=== PATIENT | male | born 1960 | race Caucasian/White ===

== ENCOUNTER 2024-07-14 13:58 | Emergency (ER) | payer MEDICARE, SELFPAY ==
[2024-07-14] VITALS (11 sets, daily range): BP systolic 115–122; BP diastolic 61–70; PULSE 71–76; RESP 13–24; TEMP 36.5; O2SAT 94–96
--- NOTE | 2024-07-14 14:00 | RT.EKG_ITS ---
APPROVED REPORT Exam: Resting ECG Reason for Exam: chest pain Patient Location: E HR:74 bpm ECG Measurements Heart Rate 74 AXIS RI 220 P 64 QRSd 118 QRS 185 QT 392 T 14 QTc 436 Conclusion Sinus rhythm 74 normal axis no stemi
[2024-07-14 14:31] LABS: Abs Immature Grans 0.03 10^3/uL (0.0-0.06); Absolute Basophil Count 0.05 10^3/uL (0.0-0.2); Absolute Eosinophil Count 0.14 10^3/uL (0.0-0.7); Absolute Lymphocyte Count 1.47 10^3/uL (1.2-3.4); Absolute Monocyte Count 0.49 10^3/uL (0.1-0.8); Absolute Neutrophil Count 4.63 10^3/uL (1.2-6.7); Basophils % 0.7 %; Eosinophils % 2.1 %; HCT 45.9 % (40.0-50.0); HGB 14.2 g/dL (13.5-17.5); Immature Grans % 0.4 %; Lymphocytes % 21.6 %; MCHC 30.9 % (32.0-36.0); MCV 87 fL (80-95); Monocytes % 7.2 %; Platelet Count 225 10^3/uL (130-400); RBC 5.25 10^6/uL (4.36-5.78); RDW 13.6 % (11.8-14.1); RDW-SD 43.9 fL; WBC 6.81 10^3/uL (4.4-10.8)
[2024-07-14 14:41] LABS: ALT 33 U/L (16-63); AST 17 U/L (15-37); Albumin 3.8 g/dL (3.4-5.0); Alkaline Phosphatase 113 U/L (46-116); Anion Gap 6.4 mmol/L (3-11); BUN 18 mg/dL (7-18); Bilirubin, Total 0.66 mg/dL (0.2-1.0); CO2 30.6 mmol/L (21.0-32.0); Calcium 8.9 mg/dL (8.5-10.1); Chloride 109 mmol/L (98-107); Estimated GFR 84.05 (mL/min/1.73m2); Glucose 100 mg/dL (74-106); Magnesium 1.8 mg/dL (1.8-2.4); Potassium 4.5 mmol/L (3.5-5.1); Sodium 146 mmol/L (136-145); Total Protein 6.6 g/dL (6.4-8.2)
--- NOTE | 2024-07-14 14:42 | DI.RAD_ITS ---
Exam(s) XR CHEST 2V PA LATERAL EXAM: XR CHEST 2V PA LATERAL CLINICAL HISTORY: cough. TECHNIQUE: 2D digital imaging was performed. COMPARISON: CR CHEST 2 VIEWS PA,LAT from 09/27/2008 FINDINGS: 2 views: There are sternotomy wires. Also fusion plate in the lower cervical spine noted. Heart size is normal. The mediastinum is not widened. Lungs are clear. No infiltrates nor pleural effusions. IMPRESSION: No acute pulmonary findings. DATA REPOSITORY: RADIATION DOSE DELIVERED:
--- NOTE | 2024-07-14 14:45 | NUR.NOTE ---
Nursing Note: Pt states he does not know any of the medications he's taking. Does not carry a medication list and does not have access to his patient portal. Fills prescriptions at [facility] in [place], [place]. Called pharmacy and they were closed until 1430, called back and Pharmacist Radha requesting a fax for release of information on company letter head. Will faxed RICHARD for medication list.
[2024-07-14 14:47] LABS: NT-proBNP 23 pg/mL (<300)
[2024-07-14 14:48] LABS: Troponin I < 4 ng/L (<or=76)
--- OUTSIDE RECORDS SUMMARY | 2024-07-14 14:55 | XMS_ITS | Encounter Summary ---
Author Organization [facility] Address [address] [place] [address] Care Team Providers Care Wrapper Rewinder Name Role Phone Unavailable Primary Care Provider Unavailabl e Encounter Details Date Type Department Care Team (Late st Contact Info) Description 05/15/2008 10:02 EDT - 05/15/2008 11:59 EDT Hospital Encounter [facility] [address] [place] [address] Sandor Juarez MD [address] [place] [address] Discharge Disposition: Auto Discharge Social History Tobacco Use Types Packs/Day Years Used Date Smoking Tobacco: Never Assessed Sex and Gender Information Value Date Recorded Sex Assigned at Not on file Legal Sex Male 18:23 EST Gender Identity Not on file Sexual Orientation Not on file documented as of this encounter Discharge Disposition Disposition Code Departure Means Destination Auto Discharge documented in this encounter Plan of Treatment Not on file documented as of this encounter Visit Diagnoses Not on filedocumented in this encounter
--- OUTSIDE RECORDS SUMMARY | 2024-07-14 14:55 | XMS_ITS | Referral Summary ---
Author Organization [facility] Address [address] [place] [address] Care Team Providers Care Healthcare Educator Name Role Phone Vipin Ramires MD Primary Care Provider Unav ailable Social History Tobacco Use Types Packs/Day Years Used Date Smoking Tobacco: Never Assessed Sex and Gender Information Value Date Recorded Sex Assigned at Not on file Legal Sex Male 18:23 EST Gender Identity Not on file Sexual Orientation Not on file Plan of Treatment Not on file Care Teams Healthcare Educator Relationship Specialty Start Date End Date Vipin Ramires MD PCP - General 01/27/11
--- OUTSIDE RECORDS SUMMARY | 2024-07-14 14:55 | XMS_ITS | Encounter Summary ---
Author Organization [facility] Address [facility] [place] [address] Care Team Providers Care Toll Line Mechanic Name Role Phone Vipin Ramires MD Primary Care Provider [phone] Encounter Details Date Type Department Care Team (Late st Contact Info) Description 05/18/2011 10:30 AM EDT - 05/18/2011 11:30 AM EDT [facility] [employer] [place] [address] Earnest Herrera MD [facility] [place] [address] CARDIAC CATHETERIZATION Social History Tobacco Use Types Packs/Day Years Used Date Smoking Tobacco: Former Cigarettes Q uit: 07/22/2009 Smokeless Tobacco: Never Sex and Gender Information Value Date Recorded Sex Assigned at Not on file Gender Identity Not on file Sexual Orientation Not on file documented as of this encounter Last Filed Vital Signs Vital Sign Reading Time Taken Comments Blood Pressure 98/63 05/18/2011 4:20 PM EDT Pulse 56 05/18/2011 4:20 PM EDT Temperature 36.9 ??C (98.4 ??F) 05/18/2011 12:57 PM E DT Respiratory Rate 16 05/18/2011 4:20 PM EDT Oxygen Saturation 98% 05/18/2011 4:20 PM EDT Inhaled Oxygen Concentration - - Weight 82.1 kg (181 lb) 05/18/2011 9:30 AM EDT Height 175.3 cm (5' 9) 05/18/2011 9:30 AM EDT Body Mass Index 26.73 05/18/2011 9:30 AM EDT documented in this encounter Discharge Instructions * Discharge Instructions* Sharan Lawsonah Cari, RN - 05/18/2011 2:43 PM EDT Wound infection may occur at any time, but it is evident more often 4-7 days after surgery. Signs and symptoms may involve one or more of the followin. Temperature elevation of more than 2 degrees or greater than 100.5 degrees F 2. Swelling and redness in or around the incision. 3. Increasing pain or discomfort in or around the incision. 4. Red streaks in the skin near the incision. 5. Pus or other foul drainage from the incision. 6. Foul smell from the incision. 7. Generalized body chills or fever. 8. Severe pain. If you suspect an incisional infection is present, are having problems, or have additional questions or concerns, please call the main [facility] number and ask for the polish maker signs and displays salesperson. Activity If you are discharged the same day as your procedure, do not drive yourself home. Arrange to have another person drive. You may walk around when you get home, but keep your activity at a minimum until the morning. Do not bend over, strain, or lift heavy objects for 24 hours after the procedure. Do not participate in active sports for 48 hours. You may engage in sexual activity after 48 hours. These restrictions will not apply if the catheter was placed in a blood vessel in your arm. Catheter Insertion Area Care Take the band-aid off the catheter insertion area the morning following the procedure. You may takea shower if you wish. Wash the area with soap and water. Look for signs of infection over the next several days. A little spot of blood at the catheter insertion area is not unusual. A bruise or small lump under the skin is normal; they generally disappear in 3-4 days. For the first several days at home if you cough or sneeze, hold your groin to help prevent bleeding. Expect some mild tenderness over the area where the catheter was inserted. You will notice this after the local anesthetic (numbing medicine) wears off. This should improve during the 24-48 hours after the procedure. Take tylenol if needed. Contact your doctor if the discomfort worsens. Problems to Watch For If there is bright red blood flowing from the catheter insertion area: *stop what you are doing and lie down *Hold pressure steadily on the area for 15 minutes *Call for Help *If the bleeding does not stop in 15 minutes call 911 for an ambulance. If there is swelling with black and blue color at the catheter insertion area, there may be bleeding inside. Contact the doctor if there is any increase in size. Look at the insertion site for the first few days at home. Signs of infection are: *redness *Swelling *Yellow, white, green or brown foul smelling drainage. *increased soreness If you think there is an infection, take your temperature. Then call your doctor. The limb on the side where you had your catheterization should look and feel normal in its color, sensation, and temperature. If your leg becomes cool, pale, blue or changing color with numbness and tingling, contact your doctor. If you feel faint or dizzy, lie down with your feet elevated. Have someone call the doctor. If you are alert, drink fluids. How to Deal with Chest pain If you had only the cardiac catheterization, treat any angina or chest discomfort as instructed. Stop what you are doing, and sit or lie down. If prescribed, take nitroglycerin under your tongue. If the angina isn't relieved, take another nitroglycerine in 5 minutes. After another 5 minutes, a third nitroglycerine may be taken. If the angina isn't improved you should call for an ambulance to bring you to the nearest hospital emergency room. If your angina is more frequent or more sever than before, contact your doctor. We usually would not expect to have angina after an angioplasty. If you do get angina, treat it as you did before but also contact your doctor. Return to Work The doctor will usually have told you when to return to work. If you do not perform heavy physical labor, most people can return to work in a few days. Diet Follow your previous diet unless otherwise instructed. Cardiac Risk Factors If you have coronary artery disease, it is important that you help control it by reducing your cardiac risk factors. If you smoke, we urge you to stop now. If you think this is going to be a problem,let us know so that we may help you. We have dieticians who can help you learn about low fat, low cholesterol diet. Cardiac rehabilitation programs can help you set up a regular exercise program. Work with your doctor if you have high blood pressure or sugar diabetes to keep these under control. Medications __x__Take your usual medications ____Medication changes: If you are taking medicines prescribed by your doctor, do not take any [id number] medicines or herbal preparations without first discussing this with your doctor or pharmacist. There is the possibility of side effect and interactions when these are combined. Follow up Care Who to Call with Questions or Problems If there are any questions or problems that you think might be related to your cardiac cath or angioplasty, contact the polish maker signs and displays salesperson by calling [facility] at . documented in this encounter Medications at Time of Discharge Medication Sig Dispensed Refills Start Date End Date metFORMIN (GLUCOPHAGE) 1,000 mg tabletIndications:type 2 diabetes mellitus Take 1,000 mg by mouth 2 times daily (with meals). Indications: Type 2 Diabetes Mellitus isosorbide mononitrate (IMDUR) 60 mg 24 hr tabletIndications:Angina Pectoris Prevention Take 60 mg by mouth daily. Indications: Angina Pectoris Prevention buPROPion (WELLBUTRIN XL) 300 mg 24 hr tabletIndications:depres jose manuel Take 300 mg by mouth every morning. Indications: Depression PARoxetine (PAXIL) 20 mg tabletIndications:depres jos emanuel Take 20 mg by mouth every morning. Takes 1 1/2 tab = 60 mg Indications: Depression carbidopa-levodopa (SINEMET) 25-100 mg per tablet Take 1 tablet by mouth nightly. ALPRAZolam (XANAX) 0.5 mg tablet Take 0.5 mg by mouth nightly. simvastatin (ZOCOR) 80 mg tablet Take 80 mg by mouth nightly. zolpidem (AMBIEN) 10 mg tablet Take 10 mg by mouth nightly. aspirin 325 mg EC tablet Take 325 mg by mouth daily. ALPRAZolam (XANAX) 2 mg tablet Take 2 mg by mouth daily. nitroGLYcerin (NITROSTAT) 0.[address] 0.4 mg under the tongue every 5 minutes as needed. metoprolol succinate (TOPROL-XL) 100 mg XL tablet Take 100 mg by mouth daily. naproxen sodium (ALEVE) 220 mg tablet Take 220 mg by mouth as needed. lamoTRIgine (LAMICTAL) 100 mg tablet Take 100 mg by mouth daily. documented as of this encounter Progress Notes * Dianna Lawson RN - 05/18/2011 1:24 PM EDT 1300- pt settled in rm # [id number]. Right groin site c/d/i. No s/sx of hematoma noted. Denies pain. VSS. to bedside and spoke with on the phone. All questions answered. Pt eating turkey sandwich and drinking diet elsa santana. In no acute distress. 1433- pt sleeping. at bedside. In no acute distress. 1530- IVF complete. 1600- pt awakened. Discharge instructions reviewed with pt and . All questions answered. Written instructions given. Denies pain. 1615- OOB and ambulated in hallway with steady gait. Right groin site C/D/I. Area soft, no s/sx hematoma. VSS. Ready for discharge. To BR and voided without difficulty. Getting dressed. 1620- call to r&d lab technician- Per - pt to hold metformin x48 hours post procedure. Pt made aware.Ready for discharge. 1632- to private car via w/c in no acute distress. documented in this encounter Procedure Notes * Provider, Scanning - 05/19/2011 10:56 AM EDTAssociated Order(s): SCAN DOC: CARDIAC CATH documented in this encounter Miscellaneous Notes * Miscellaneous - Provider, Scanning - 05/19/2011 10:56 AM EDT * Miscellaneous - Provider, Scanning - 05/18/2011 9:59 AM EDT documented in this encounter Plan of Treatment Scheduled Orders Name Type Priority Associated Diagnoses Orde r Schedule EKG 12 Lead ECG STAT CAD (coronary artery disease) One Time for 1 Occurrences starting 05/18/2011 until 05/18/2011 documented as of this encounter Procedures Procedure Name Priority Date/Time Associated Diagnosis Comments CARDIAC CATH SCAN 05/19/2011 10: 56 AM EDT CARDIAC CATHETERIZATION 05/18/20 11 10:45 AM EDT as POCT GLUCOSE Routine 05/18/2011 9:29 AM EDT BMP W/FASTING GLUCOSE STAT 05/18/2011 9:18 AM EDT DIFFERENTIAL, AUTOMATED STAT 05/18/20 11 9:18 AM EDT PROTHROMBIN TIME STAT 05/18/2011 9:18 AM EDT CBC (WITH DIFF) STAT 05/18/2011 9:18 AM EDT CAD (coronary artery disease) LIPID PANEL (REFLEX DIRECT LDL) STAT 05/18/2011 9:18 AM EDT documented in this encounter Results * SCAN DOC: CARDIAC CATH (05/19/2011 10:56 AM EDT) Anatomical Region Laterality Modality Other Narrative 05/19/2011 10:58 AM EDT Procedure Note Provider, Scanning - 05/19/2011 10:56 AM EDT Scanning Provider MEDIA MGR SCAN EXT O RDR/RSLT * POCT GLUCOSE LAB USE ONLY (05/18/2011 9:29 AM EDT) Glucose, POC 123 60 - 199 mg/dL [facility] Comment: Supplemental ranges: <110 mg/dL before meals <200 mg/dL all other times of the day Blood specimen (specimen) 05/18/2011 9:29 AM EDT 05/18/2011 9:29 AM EDT Earnest Herrera MD POINT OF CARE TEST O RDERABLES [facility] * A-DIFF (05/18/2011 9:18 AM EDT) Neutrophil % 61.0 34.0 - 71.0 % CERNER MILLENNIUM Neutrophil Absolute 5.20 1.50 - 6.30 x10(3)/mcL CERNER MILLENNIUM Lymph % 28.3 19.0 - 53.0 % CERNER MILLENNIUM Lymphocytes Abs 2.4 1.0 - 3.6 x10(3)/mcL CERNER MILLENNIUM Monocyte % 7.3 4.0 - 13.0 % CERNER MILLENNIUM Monocyte Abs 0.6 0.2 - 1.0 x10(3)/mcL CERNER MILLENNIUM Eos % 2.6 0.0 - 7.0 % CERNER MILLENNIUM Eosinophils Abs 0.2 0.0 - 0.5 x10(3)/mcL CERNER MILLENNIUM Basophil % 0.6 0.0 - 2.0 % CERNER MILLENNIUM Baso Absolute 0.1 0.0 - 0.2 x10(3)/mcL CERNER MILLENNIUM Immature Gran % 0.20 0.00 - 0.66 % CERNER MILLENNIUM Comment: Immature granulocytes(IG's)percentage and absolute count will include metamyelocytes, myelocytes, and promyelocytes. Blood smears from CBCs yielding IG's will be scanned manually for concordance. If this scan disagrees with the automated IG or if promyelocytes are noted, a manual differential will be performed. Immature Gran Absolute 0.02 0.00 - 0.05 x10(3)/mcL CERNER MILLENNIUM Blood specimen (specimen) 05/18/2011 9:18 AM EDT 05/18/2011 9:41 AM EDT Earnest Herrera MD HEMATOLOGY ORDERABLE S [facility] * CBC (with Diff) (05/18/2011 9:18 AM EDT) White Blood Cell 8.5 4.0 - 10.0 x10(3)/mcL CERNER MILLENNIUM Red Blood Cell 5.25 4.63 - 6.08 x10(6)/mcL CERNER MILLENNIUM Hemoglobin 14.8 13.7 - 17.5 gm/dL CERNER MILLENNIUM Hematocrit 45.3 40.0 - 51.0 % CERNER MILLENNIUM Mean Cell Volume 86.3 79.0 - 92.0 fL CERNER MILLENNIUM Mean Cell Hemoglobin 28.2 25.6 - 32.2 pg CERNER MILLENNIUM Mean Cell Hemoglobin Concentration 32.7 32.0 - 36.5 gm/dL CERNER MILLENNIUM Platelet 240 145 - 370 x10(3)/mcL CERNER MILLENNIUM RDW Standard Deviation 43.4 35.0 - 46.0 fL CERNER MILLENNIUM RDW coefficient of variation 13.9 10.9 - 14.4 % CERNER MILLENNIUM Mean Platelet Volume 9.1 9.0 - 12.0 fL CERNER MILLENNIUM Blood specimen (specimen) 05/18/2011 9:18 AM EDT 05/18/2011 9:41 AM EDT Earnest Herrera MD HEMATOLOGY ORDERABLE S CERNER MILLENNIUM * (ABNORMAL) Lipid panel (fasting) (05/18/2011 9:18 AM EDT) Cholesterol, Total 142 <=199 mg/dL CERNER MILLENNIUM Comment: Recommendations of the NCEP Adult Treatment Panel for the following risk cutoff thresholds for the [place] population: Desirable: <200 mg/dL Borderline High: 200-239 mg/dL High: > or = 240 mg/dL Triglyceride 133 <=149 mg/dL CERNER MILLENNIUM Comment: Reference Range: Normal triglycerides: ??<150 mg/dL Borderline high: ??150-199 mg/dL High: ??200-499 mg/dL Very high: ??>fl=521 mg/dL AIFA 2001; 285(19):9360-7263 HDL Cholesterol 39(L) >=40 mg/dL CER NER MILLENNIUM Comment: Reference range: ??Low HDL: ?? < 40 mg/dL ??Normal: ?40-60 mg/dL ??Desirable: > 60 mg/dL AFIA 2001; 285(19):6024-9744 LDL Cholesterol 76 <=99 mg/dL [facility] NER MILLENNIUM Comment: Reference range: ?? Optimal: ?<100 mg/dL ?? Near Optimal/Above Optimal: ?? 100-129 mg/dL ?? Borderline high: ?130-159 mg/dL ?? High: ? 160-189 mg/dL ?? Very high: ?>vt=331 mg/dL AFIA 2001: 285(19):9410-1352 Cholesterol/HDL Ratio 3.6 ratio [facility] Comment: A Cholesterol to HDL ratio below 4:1 is desirable. ??Studies suggest that increased CAD risk occurs at ratios above 5 for females and above 6 for men. ? [place] Heart Association ??(http://www.americanheart.org) ? Minda Int Med, 1994; 121:641 ? AM J Med, 1998; 105(1A):48S Blood specimen (specimen) 05/18/2011 9:18 AM EDT 05/18/2011 9:41 AM EDT Earnest Herrera MD CHEMISTRY ORDERABLES [facility] * (ABNORMAL) BMP w/fasting Glucose (05/18/2011 9:18 AM EDT) Glucose Fasting 136(H) 65 - 99 mg/dL [facility] Comment: ?Fasting* Glucose Interpretive Criteria Normal ?65-99 mg/dL Impaired Fasting glucose ?100-125 mg/dL Consistent with Diabetes Mellitus ? >or= 126 mg/dL *Fasting is defined as no caloric intake for at least 8 hours In the absence of unequivocal hyperglycemia a plasma glucose value of >or= 126 mg/dL should be repeated on a subsequent day. Diagnosis and Classification of Diabetes Mellitus, Position Statement from the [place] Diabetes Association. ??Diabetes Care, Volume 33, Supplement 1, Aug 2009 Blood Urea Nitrogen 17 10 - 20 mg/dL CERNER MILLENNIUM Creatinine 1.20 0.80 - 1.50 mg/dL CERNER MILLENNIUM Sodium 142 135 - 145 mmol/L CERNER MILLENNIUM Potassium 5.3(H) 3.5 - 5.0 mmol/L CERNER MILLENNIUM Comment: Please note: ??Patients with WBC >100,000 may have falsely elevated Potassium levels. ??For accurate Potassium quantification in these patients send serum separator tube (gold top) for subsequent determinations. ??Contact the Clinical Chemistry Laboratory if there are any questions. Chloride 104 98 - 107 mmol/L CERNER MILLENNIUM Carbon Dioxide 33(H) 22 - 31 mmol/L CERNER MILLENNIUM Anion Gap 5 5 - 15 mmol/L CERNER MILLENNIUM Calcium 9.8 8.5 - 10.5 mg/dL CERNER MILLENNIUM Est Glomerular Filtration Rate >60 >=60 CERNER MILLENNIUM Comment: The National Kidney Disease Education Program (NKDEP) has recommended all laboratories report estimated GFR (eGFR) along with plasma creatinine measurements to assist you with recognition of early kidney disease. Caveats: ??Plasma creatinine should be at steady-state (unchanged within the past week). For patients multiply eGFR by 1.2.MDRD equation has not been validated for pediatric patients and is only valid for patients with age >= 18 years. At present, NKDEP does NOT recommend using the MDRD equation for drug dosing purposes and pharmacists should continue to use their current dosing methods. In addition, numerical eGFR values greater than 60 ml/min/1.73 square meters should be treated as > 60, and not an exact number due to greater inaccuracies at these higher values. Per NKDEP, they classify normal renal function as any GFR >60ml/min/1.73 square meters; chronic kidney disease when GFR <60, and renal failure when GFR <15. ??This calculation may not be valid for patients with atypical muscle mass (very lean or obese), acute renal failure, and in patients with diabetic kidney disease. References: http://nkdep.nih.gov/resources/NKDEP_Suggestn4Labs_0606_508.pdf http://www.kidney.org/professionals/kls/pdf/faq_gfr.pdf Blood specimen (specimen) 05/18/2011 9:18 AM EDT 05/18/2011 9:41 AM EDT Earnest Herrera MD CHEMISTRY ORDERABLES Performing Organization Address [facility] Co de Phone Number CHATO SANON * Prothrombin Time (05/18/2011 9:18 AM EDT) Prothrombin Time 13.0 12.3 - 14.7 sec CHATO LORIEENNIUM Comment: [facility] Transfusion Committee Guidelines: INR less than 2.0, PTT less than OR equal to 43.5 seconds, or Fibrinogen greater than or equal to 100 mg/dl indicate adequate procoagulant activity for hemostasis in patients without underlying bleeding disorders. International Normalization Ratio 1.0 0.9 - 1.1 CHATO LORIEJENY Blood specimen (specimen) 05/18/2011 9:18 AM EDT 05/18/2011 9:41 AM EDT Earnest Herrera MD HEMATOLOGY ORDERABLE S Performing Organization Address [facility] de Phone Number CHATO SANON documented in this encounter Visit Diagnoses Not on filedocumented in this encounter Administered Medications Inactive Administered Medications - up to 3 most recent administrations Medication Order MAR Action Action Date Dose Rate Site diaZEPam (VALIUM) tablet 5 mg 5 mg, Oral, ONCE, 1 dose, On Tue05/18/11 at 1015, Cath (Day of Procedure), Routine Given 05/18/2011 10:38 AM EDT 5 mg diphenhydrAMINE (BENADRYL) tablet 25 mg 25 mg, Oral, ONCE, 1 dose, On Tue05/18/11 at 1015, Cath (Day of Procedure), Routine Given 05/18/2011 10:38 AM EDT 25 mg heparin (porcine) injection ONCE PRN, 1 dose, Starting on Tue05/18/11 at 1104, Until Tue05/18/11 at 1104, Intra-Operative (Intra-Procedure), Routine Given 05/18/2011 11:04 AM EDT 2,000 Units Left Arm iodixanol (VISIPAQUE) 320 mg/mL injection ONCE PRN, 1 dose, Starting on Tue05/18/11 at 1134, Until Tue05/18/11 at 1134, Per Protocol, Cath (Intra-Procedure), Routine Given 05/18/2011 11:34 AM EDT 165 mLs lidocaine (PF) (XYLOCAINE) 10 mg/mL (1 %) injection ONCE PRN, 1 dose, Starting on Tue05/18/11 at 1100, Until Tue05/18/11 at 1100, Intra-Operative (Intra-Procedure), Routine Given 05/18/2011 11:00 AM EDT 10 mg sodium chloride 0.9% infusion 100 mL/hr, Intravenous, CONTINUOUS, Starting on Tue05/18/11 at 1200, Until Tue05/18/11 at 1459 New Bag 05/18/2011 12:30 PM EDT 100 mL/hr 100 mL/hr documented in this encounter Active and Recently Administered Medications Times are shown in EDT. Scheduled Medication Order 05/16/2011 05/17/2011 05/18/2011 diaZEPam (VALIUM) tablet 5 mg (COMPLETED) 5 mg, Oral, ONCE, 1 dose, On Tue05/18/11 at 1015, Cath (Day of Procedure), Routine 1038 (Given - Provid er: Lance Pereira RN) diphenhydrAMINE (BENADRYL) tablet 25 mg (COMPLETED) 25 mg, Oral, ONCE, 1 dose, On Tue05/18/11 at 1015, Cath (Day of Procedure), Routine 1038 (Given - Provid er: Lance Pereira RN) Continuous Medication Order 05/16/2011 05/17/2011 05/18/2011 sodium chloride 0.9% infusion () 100 mL/hr, Intravenous, CONTINUOUS, Starting on Tue05/18/11 at 1200, Until Tue05/18/11 at 1459 1230 (New Bag - Prov ider: Noel Bailon RN - Comment: post cath fluid) PRN Medication Order 05/16/2011 05/17/2011 05/18/2011 heparin (porcine) injection (COMPLETED) ONCE PRN, 1 dose, Starting on Tue05/18/11 at 1104, Until Tue05/18/11 at 1104, Intra-Operative (Intra-Procedure), Routine 1104 (Given - Provid er: Abi Pereyra RN) iodixanol (VISIPAQUE) 320 mg/mL injection (COMPLETED) ONCE PRN, 1 dose, Starting on Tue05/18/11 at 1134, Until Tue05/18/11 at 1134, Per Protocol, Cath (Intra-Procedure), Routine 1134 (Given - Provid er: Earnest Herrera MD) lidocaine (PF) (XYLOCAINE) 10 mg/mL (1 %) injection (COMPLETED) ONCE PRN, 1 dose, Starting on Tue05/18/11 at 1100, Until Tue05/18/11 at 1100, Intra-Operative (Intra-Procedure), Routine 1100 (Given - Provid er: Mark Madrigal MD) documented in this encounter Care Teams Toll Line Mechanic Relationship Specialty Start Date End Date Vipin Ramires MD [address] [place] [address] PCP - General 07/14/10 documented as of this encounter
--- OUTSIDE RECORDS SUMMARY | 2024-07-14 14:55 | XMS_ITS | Encounter Summary ---
Author Organization [facility] Address [address] [place] [address] Care Team Providers Care Shearer Screen Measurer And Trimmer Name Role Phone Unavailable Primary Care Provider Unavailabl e Encounter Details Date Type Department Care Team (Late st Contact Info) Description 05/30/2008 14:55 EDT Hospital Encounter [facility] [address] [place] [address] Cristofer Mehta MD [address] [facility], [address] [place] [address] Discharge Disposition: Auto Discharge Social History Tobacco [...]
--- OUTSIDE RECORDS SUMMARY | 2024-07-14 14:55 | XMS_ITS | Encounter Summary ---
Author Organization [facility] [place] [address] Care Team Providers Care Bed Laborer Name Role Phone Vipin Ramires MD Primary Care Provider [phone] [phone] Encounter Details Date Type Department Care Team (Latest Contact Info) Description 05/10/2011 10:25 AM EDT - 05/10/2011 11:59 PM EDT Hospital [place] [id number] Italo Mae MD CAD (coronary artery disease) Discharge Disposition: Home Social History Tobacco Use Types Packs/Day Years Used Date Smoking Tobacco: Former Cigarettes Q uit: 07/22/2009 Smokeless Tobacco: Never Sex and Gender Information Value Date Recorded Sex Assigned at Not on file Gender Identity Not on file Sexual Orientation Not on file documented as of this encounter Medications at Time of Discharge Medication Sig Dispensed Refills Start Date End Date carbidopa-levodopa (SINEMET) 25-100 mg per tablet Take [...] mouth daily. documented as of this encounter Plan of Treatment Not on file documented as of this encounter Procedures Procedure Name Priority Date/Time Associated Diagnosis Comments DIFFERENTIAL, AUTOMATED Routine 05/10/2011 11:05 AM EDT ABO/RH TYPING Routine 05/10/2011 11:05 AM EDT APTT Routine 05/10/2011 11:05 AM EDT CAD (coronary artery disease) PROTHROMBIN TIME Routine 05/10/2011 11:0 5 AM EDT CAD (coronary artery disease) CBC (WITH DIFF) Routine 05/10/2011 11:05 AM EDT CAD (coronary artery disease) ANTIBODY SCREEN Routine 05/10/2011 11:05 AM EDT BASIC METABOLIC PANEL Routine 05/10/2011 11:05 AM EDT CAD (coronary artery disease) TYPE AND SCREEN, SDP (FUTURE SURGERY, [facility] SAME DAY PROGRAM ONLY) Routine 05/10/2011 10:33 AM EDT CAD (coronary artery disease) documented in this encounter Results * REFLEX LAB-A-DIFF (05/10/2011 11:05 AM EDT) Neutrophil % 56.7 34.0 - 71.0 % CERNER MILLENNIUM Neutrophil Absolute 5.38 1.50 - 6.30 x10(3)/mcL CERNER MILLENNIUM Lymph % 31.5 19.0 - 53.0 % CERNER MILLENNIUM Lymphocytes Abs 3.0 1.0 - 3.6 x10(3)/mcL CERNER MILLENNIUM Monocyte % 5.8 4.0 - 13.0 % CERNER MILLENNIUM Monocyte Abs 0.6 0.2 - 1.0 x10(3)/mcL CERNER MILLENNIUM Eos % 5.5 0.0 - 7.0 % CERNER MILLENNIUM Eosinophils Abs 0.5 0.0 - 0.5 x10(3)/mcL CERNER MILLENNIUM Basophil % 0.3 0.0 - 2.0 % CERNER MILLENNIUM Baso Absolute 0.0 0.0 - 0.2 x10(3)/mcL CERNER MILLENNIUM Immature Gran % 0.20 0.00 - 0.66 % [facility] LORIEENNIUM Comment: Immature granulocytes(IG's)percentage and absolute count will include metamyelocytes, myelocytes, and promyelocytes. Blood smears from CBCs yielding IG's will be scanned manually for concordance. If this scan disagrees with the automated IG or if promyelocytes are noted, a manual differential will be performed. Immature Gran Absolute 0.02 0.00 - 0.05 x10(3)/mcL CHATO CARABALLOIUM Blood specimen (specimen) 05/10/2011 11:05 AM EDT 05/10/2011 11:13 AM EDT Italo Mae MD HEMATOLOGY ORDERABL ES Performing Organization Address [facility] de Phone Number [facility] * REFLEX LAB-ANTIBODY SCREEN (05/10/2011 11:05 AM EDT) Ab Screen Interp Negative [facility] Expires at [id number] on: [id number] [facility] Blood specimen (specimen) 05/10/2011 11:05 AM EDT 05/10/2011 11:13 AM EDT Italo Mae MD BLOOD BANK LAB ORDFabiola FLEMING Performing Organization Address [facility] de Phone Number [facility] * REFLEX LAB-ABO/RH TYPING (05/10/2011 11:05 AM EDT) ABORH Type O Pos [facility] Blood specimen (specimen) 05/10/2011 11:05 AM EDT 05/10/2011 11:13 AM EDT Italo Mae MD BLOOD BANK LAB ORDFabiola FLEMING Performing Organization Address [facility] Co de Phone Number CERFABIAN MILLENNIUM * APTT (05/10/2011 11:05 AM EDT) Partial Thromboplastin Time 25 25 - 37 sec CERNER MILLENNIUM Comment: Recommended therapeutic PTT range for full dose unfractionated heparin is 80-114 seconds. Blood specimen (specimen) 05/10/2011 11:05 AM EDT 05/10/2011 11:13 AM EDT Italo Mae MD HEMATOLOGY ORDERABL ES Performing Organization Address [facility] de Phone Number CHATO CARABALLOIUM * (ABNORMAL) Prothrombin Time (05/10/2011 11:05 AM EDT) Prothrombin Time 12.2(L) 12.3 - 14.7 sec CERNER MILLENNIUM Comment: [facility] Transfusion Committee Guidelines: INR less than 2.0, PTT less than OR equal to 43.5 seconds, or Fibrinogen greater than or equal to 100 mg/dl indicate adequate procoagulant activity for hemostasis in patients without underlying bleeding disorders. International Normalization Ratio 0.9 0.9 - 1.1 CERNER MILLENNIUM Blood specimen (specimen) 05/10/2011 11:05 AM EDT 05/10/2011 11:13 AM EDT Italo Mae MD HEMATOLOGY ORDERABL ES Performing Organization Address [facility] de Phone Number CERFABIAN CARABALLOIUM * (ABNORMAL) Basic Metabolic Panel (non-fasting) (05/10/2011 11:05 AM EDT) Glucose 108 60 - 199 mg/dL CERNER MILLENNIUM Comment:Diabetes: >=200 mg/d L plus symptoms Blood Urea Nitrogen 17 10 - 20 mg/dL CERNER MILLENNIUM Creatinine 1.01 0.80 - 1.50 mg/dL CERNER MILLENNIUM Sodium 143 135 - 145 mmol/L CERNER MILLENNIUM Potassium 5.1(H) 3.5 - 5.0 mmol/L CERNER MILLENNIUM Comment: Please note: ??Patients with WBC >100,000 may have falsely elevated Potassium levels. ??For accurate Potassium quantification in these patients send serum separator tube (gold top) for subsequent determinations. ??Contact the Clinical Chemistry Laboratory if there are any questions. Chloride 103 98 - 107 mmol/L CERNER MILLENNIUM Carbon Dioxide 31 22 - 31 mmol/L CERNER MILLENNIUM Anion Gap 9 5 - 15 mmol/L CERNER MILLENNIUM Calcium 9.7 8.5 - 10.5 mg/dL CERNER MILLENNIUM Est [...] disease. References: http://nkdep.nih.gov/resources/NKDEP_Suggestn4Labs_0606_508.pdf http://www.kidney.org/professionals/kls/pdf/faq_gfr.pdf Blood specimen (specimen) 05/10/2011 11:05 AM EDT 05/10/2011 11:13 AM EDT Italo Mae MD CHEMISTRY ORDERABLE S CHATO SANON * CBC (with Diff) (05/10/2011 11:05 AM EDT) White Blood Cell 9.5 4.0 - 10.0 x10(3)/mcL CERNER MILLENNIUM Red Blood Cell 5.12 4.63 - 6.08 x10(6)/mcL CERNER MILLENNIUM Hemoglobin 14.6 13.7 - 17.5 gm/dL CERNER MILLENNIUM Hematocrit 44.3 40.0 - 51.0 % CERNER MILLENNIUM Mean Cell Volume 86.5 79.0 - 92.0 fL CERNER MILLENNIUM Mean Cell Hemoglobin 28.5 25.6 - 32.2 pg CERNER MILLENNIUM Mean Cell Hemoglobin Concentration 33.0 32.0 - 36.5 gm/dL CERNER MILLENNIUM Platelet 231 145 - 370 x10(3)/mcL CERNER MILLENNIUM RDW Standard Deviation 43.0 35.0 - 46.0 fL CERNER MILLENNIUM RDW coefficient of variation 13.5 10.9 - 14.4 % CERNER MILLENNIUM Mean Platelet Volume 9.1 9.0 - 12.0 fL CERNER MILLENNIUM Blood specimen (specimen) 05/10/2011 11:05 AM EDT 05/10/2011 11:13 AM EDT Italo Mae MD HEMATOLOGY ORDERABL ES CHATO SANON documented in this encounter Visit Diagnoses Diagnosis CAD (coronary artery disease) Coronary atherosclerosis of unspecified type of vessel, rincon or graft documented in this encounter Care Teams Bed Laborer Relationship Specialty Start Date End Date Vipin Ramires MD [address] [place] [address] PCP - General 07/14/10 documented as of this encounter
--- OUTSIDE RECORDS SUMMARY | 2024-07-14 14:55 | XMS_ITS | Encounter Summary ---
Author Organization [facility] [place] [address] Care Team Providers Care Interlacer Name Role Phone Vipin Ramires MD Primary Care Provider [phone] [phone] Reason for Visit * Reason Comments Chest Pain s/p cabg Encounter Details Date Type Department Care Team (Late st Contact Info) Description 05/10/2011 9:00 AM EDT Office Visit [place]oth[place] [address] Italo Mae MD CAD (coronary artery disease) (Primary Dx) Discharge Disposition: Home Social History Tobacco Use Types Packs/Day Years Used Date Smoking Tobacco: Former Cigarettes Q uit: 07/22/2009 Smokeless Tobacco: Never Sex and Gender Information Value Date Recorded Sex Assigned at Not on file Gender Identity Not on file Sexual Orientation Not on file documented as of this encounter Last Filed Vital Signs Vital Sign Reading Time Taken Comments Blood Pressure 100/60 05/10/2011 9:07 AM EDT Pulse 64 05/10/2011 9:07 AM EDT Temperature - - Respiratory Rate - - Oxygen Saturation 98% 05/10/2011 9:07 AM EDT Inhaled Oxygen Concentration - - Weight 82.1 kg (181 lb) 05/10/2011 9:07 AM EDT Height 177.8 cm (5' 10) 05/10/2011 9:07 AM EDT Body Mass Index 25.97 05/10/2011 9:07 AM EDT documented in this encounter Progress Notes * Italo Mae MD - 05/10/2011 10:16 AM EDT Mr. Mendez is status post CABG times three, ALVARADO to the LAD, saphenous vein graft to a moderate size to small diag, and a saphenous vein graft to the right coronary artery. He is about two years out of his surgery with now going about nine to 12 months of recurrent angina. He takes a long-acting nitrate for that and about once a month needs a short-acting nitrate. He is on permanent disability due to both his anginal problems, as well as his mental problems. He currently is pain-free right now, but limiting his activity. His last cath was a year ago showing that both vein grafts were down, that his ALVARADO to the LAD looked great and it was retrograde filling at the diag, which has a tight stenosis in it, but the diag looks very small. His right coronary artery showed his stents were functioning and probably out-competed the flow of the graft with no significant stenosis. His EF is relatively preserved. His past medical history, his past surgical history is unchanged. The EMR can be used to find his medications and his allergies and his smoking history. Impression: Mr. Mendez has chronic stable angina, status post CABG, which is becoming refractory to his current medication therapy. Plan: 1. He will get a carotid duplex due to his plaque burden and his recent symptoms of slurred speech, headaches and confusion. 2. He will see Dr. Baker for a repeat catheterization. 3. We will the discuss stenting versus bypass options. documented in this encounter Plan of Treatment Not on file documented as of this encounter Results * Cerebrovascular Duplex, Bilateral (05/10/2011 12:29 PM EDT) VB Text Report Department: Vascular Surgery Lab Patient: [id number] (PAULA MENDEZ) CPT Code: 27707 ICD-9: 782.0 Referring Physician: ITALO MAE Indication: ??neck and face numbness ICD9 Diagnosis Code: 782.0 Findings: Right ICA Proximal ?PSV (cm/s): 45 ?EDV (cm/s): 21 ?ICA/CCA: 0.7 ?Plaque Structure: Echogenic ?Plaque Surface: Smooth ?%Stenosis: <15% ICA Distal ?PSV (cm/s): 44 ?EDV (cm/s): 20 ?ICA/CCA: 0.7 CCA Distal ?PSV (cm/s): 63 ?EDV (cm/s): 20 ?%Stenosis: Minimal CCA Proximal ?PSV (cm/s): 72 ?EDV (cm/s): 19 External Carotid Artery ?PSV (cm/s): 90 ?EDV (cm/s): 13 ?%Stenosis: Minimal Vertebral ?PSV (cm/s): 31 ?EDV (cm/s): 10 Left ICA Proximal ?PSV (cm/s): 41 ?EDV (cm/s): 18 ?ICA/CCA: 0.6 ?Plaque Structure: Echogenic ?Plaque Surface: Smooth ?%Stenosis: <15% ICA Distal ?PSV (cm/s): 33 ?EDV (cm/s): 16 ?ICA/CCA: 0.5 CCA Distal ?PSV (cm/s): 65 ?EDV (cm/s): 16 ?%Stenosis: Minimal CCA Proximal ?PSV (cm/s): 71 ?EDV (cm/s): 17 External Carotid Artery ?PSV (cm/s): 78 ?EDV (cm/s): 14 ?%Stenosis: Minimal Vertebral ?PSV (cm/s): 28 ?EDV (cm/s): 10 Interpretation: RIGHT: There is minimal plaque in the proximal internal carotid artery causing <15% stenosis when compared to the more distal internal carotid artery. The bifurcation level is in the mid neck. LEFT: There is minimal plaque in the proximal internal carotid artery causing <15% stenosis when compared to the more distal internal carotid artery. The bifurcation level is in the mid neck. Vertebral Artery Data: Antegrade blood flow with normal Doppler waveforms and velocities bilaterally. Accuracy Data: The following statistics are based on comparisons performed [place] [facility] [place]invasive carotid artery duplex data and arteriographic evaluation of the same patients from 8023-3222. Q / A Sens. Spec. PPV NPV Accuracy Carotid 93% 98% 97% 95% 96% Signed by DERICK LAUREN on 2011-05-10 04:41:58 PM VASCUBASE VB Text Report End of Report VASCUBASE 05/10/2011 12:2 9 PM EDT Italo Mae MD VASCULAR ORDERABLES VASCUBASE documented in this encounter Visit Diagnoses Diagnosis CAD (coronary artery disease)- Primary Coronary atherosclerosis of unspecified type of vessel, pe[place] or graft documented in this encounter Care Teams Interlacer Relationship Specialty Start Date End Date Vipin Ramires MD [address] [place] [address] PCP - General 07/14/10 documented as of this encounter
--- OUTSIDE RECORDS SUMMARY | 2024-07-14 14:55 | XMS_ITS | Encounter Summary ---
Author Organization [facility] Address [address] [place] [address] Care Team Providers Care Heavy Truck Technician Name Role Phone Unavailable Primary Care Provider Unavailabl e Encounter Details Date Type Department Care Team (Late st Contact Info) Description 05/15/2008 Before PRISM Converted Visit ([facility]) [facility] [address] [place] [address] Sandor Juarez MD [address] [place] [address] [place] [id number] Social History Tobacco Use Types Packs/Day Years Used Date Smoking Tobacco: Never Assessed Sex and Gender Information Value Date Recorded Sex Assigned at Not on file Legal Sex Male 18:23 EST Gender Identity Not on file Sexual Orientation Not on file documented as of this encounter Consult Notes * Sandor Juarez - 03/15/2009 1316 EDT DIVISION OF GASTROENTEROLOGY CONSULTATION - 05/15/2008 CHIEF COMPLAINT Mr. Mendez was referred to the gastroenterology clinic by Dr. Radhames Mckee for evaluation of dysphagia. HISTORY OF PRESENT ILLNESS Mr. Mendez is a 48-year-old gentleman with a history of gastroesophageal reflux status postNissen fundoplication done in 2000. Since that time, the patient has had improvement of his gastroesophagealreflux symptoms; however, he has had difficulty with dysphagia, especially with solids. His symptoms have been persistent over these years and hewas initially advised to be more thorough with chewingof food, but this did not improve symptoms. He underwent an EGD with dilatation to 18-mm, and againdid not have any improvement in his symptoms. The patient describes a sensation of the food stickinglower in the esophagus and also has to regurgitate in order to improve symptoms. The patient has not had any weight loss over this time period and denies any early satiety. The patient has had intermittent left lower quadrant tenderness as well as intermittent bright red blood per rectum. The patient has had a colonoscopy in the past, which per his report was normal, but this was many years ago per the patient. REVIEW OF SYSTEMS The patient denies fevers, chills, no vision changes, no sore throat or mouth pain, no chest pain, no shortness of breath, no skin rashes, no dysuria. PAST MEDICAL HISTORY Coronary artery disease status post PCI times three, hyperlipidemia, hypertension, anxiety, osteoarthritis, restless legs syndrome. CURRENT MEDICATIONS 1. Paxil 60 mg p.o. every day. 2. Aspirin 325 mg p.o. every day. 3. Prilosec 20 mg p.o. every day. 4. Toprol 80 mg p.o. every day. 5. Sinemet one-half tablet p.o. every day. 6. Aleve 200 mg one p.o. b.i.d. 7. Simvastatin 20 mg p.o. every day. 8. Trazodone 25 mg p.o. every day. 9. Plavix 75 mg p.o. every day. 10. Nitroglycerin sublingual p.r.n. ALLERGIES GI INTOLERANCE TO CODEINE. 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 Very rare alcohol use, about one drink per year. FAMILY HISTORY Significant for coronary artery disease, diabetes, and hypertension. OBJECTIVE Vital signs in the office today: Blood pressure 139/78, pulse 60 and regular. Weight 188 pounds. General; In no acute distress, alert and oriented times three, comfortable in the exam room with his . HEENT: Extraocular eye movements intact. Pupils equal, round, and reactive to light. Moist mucous membranes. No erythema. Neck is supple. No thyromegaly. Trachea midline. Lymph: No cervical, supraclavicular, pre or postauricular lymphadenopathy is noted on exam. Cardiovascular: Regular rate and rhythm; no murmurs, rubs, or gallops. Pulmonary: Lungs are clear to auscultation bilaterally. Abdomen: Nondistended, soft, positive bowel sounds, mild tenderness to palpation left lower quadrant. Extremities: No lower extremity edema. ASSESSMENT The patient is a [id number] male with symptoms of dysphagia persistent since Warner fundoplication performed in 2000 for gastroesophageal reflux disease. Manometry was not performed before the procedure. PLAN 1. We will plan to do esophageal manometry this afternoon to further evaluate the patients dysphagia and whether or not it is secondary to the fundoplication versus underlying esophageal dysmotility. 2. Possible treatments were discussed with the patient, including possible dilatation of the fundoplication versus possible surgery to undo the fundoplication and redo a partial wrap. Either procedure would potentially have the risk of bleeding given the patients current use of aspirin and Plavix for his coronary artery disease and recent stents. 3. Depending on the results of the manometry, will consider referring the patient to Dr. Mehta for possible evaluation for surgical repair of the fundoplication. 4. Given the patients symptoms of intermittent bright red blood per rectum and left lower quadrant pain, we will schedule the patient for a colonoscopy. The patient was discussed with and seen by Dr. Juarez. Dictated by Dr. Herminio Kelley MD, Resident. ADDENDUM I have seen and examined Mr. Mendez myself, together with the resident, and agree with his history,physical assessment, and plan as outlined above. Briefly, Mr. Mendez presents with ongoing dysphagia following Warner fundoplication, which was performed approximately 7 or 8 years ago. Apparently, Hector did not undergo esophageal manometry prior to fundoplication, so it is unclear if he had any underlying esophageal dysmotility, but he has had trouble swallowing essentially ever since surgery and often finds that he needs to regurgitate food that he swallowed. He has previously undergone esophageal dilation to 18 mm, which he reports had nosignificant effect. I discussed possible further evaluation and therapy with Mr. Mendez and his , including esophageal manometry to evaluate for any primary esophageal dysmotility. The results ofthis test will help guide further therapy, however, regardless of the results, Mr. Mendez will likely need either further dilation with a larger balloon or consideration of surgical takedown of his wrap. I discussed the risks and benefits of both of these courses with Hector and his , including possible esophageal perforation and the risk of significant bleeding given his use of aspirin and Plavixwith dilation. Mr. Mendez would like to discuss further the possibility of surgical takedown, and to this end I will send him to see Dr. Miguel Mehta in consultation. I will follow up with Dr. Mendez at the time of manometry. Signed by Sandor Juarez MD 2008 13:48 Sandor Juarez MD [phone] - Isabel Juarez MD - CHRISTINA Job ID: [id number] Doc ID: [id number] cc: Cristofer Mehta MD, IKER Mckee MD - Sandor Juarez MD - christina Job ID: [id number] Doc ID: [id number] cc: Cristofer Mehta MD, IKER Mckee MD documented in this encounter Plan of Treatment Not on file documented as of this encounter Visit Diagnoses Not on filedocumented in this encounter
--- OUTSIDE RECORDS SUMMARY | 2024-07-14 14:55 | XMS_ITS | Encounter Summary ---
[place] [address] Care Team Providers Care Resolution Analyst Name Role Phone Vipin Ramires MD Primary Care Provider [phone] Encounter Details Date Type Department Care Team (Late st Contact Info) Description 05/10/2011 12:30 PM EDT Office Visit [place] [phone] Inge Sheehan, RVT CAD (coronary artery disease) Social History Tobacco Use Types Packs/Day Years Used Date Smoking Tobacco: Former Cigarettes Q uit: 07/22/2009 Smokeless Tobacco: Never Sex and Gender Information Value Date Recorded Sex Assigned at Not on file Gender Identity Not on file Sexual Orientation Not on file documented as of this encounter Plan of Treatment Not on file documented as of this encounter Procedures Procedure Name Priority Date/Time Associated Diagnosis Comments CAROTID DUPLEX, BILATERAL Routine 05/10/2011 12:29 PM EDT CAD (coronary artery disease) documented in this encounter Results * Cerebrovascular Duplex, Bilateral (05/10/2011 12:29 PM EDT) VB Text Report Department: Vascular Surgery Lab Patient: [id number] (PAULA MENDEZ) CPT Code: 29198 ICD-9: 782.0 Referring Physician: ITALO MAE Indication: [...] statistics are based on comparisons performed [place] [facility] [place]invasive carotid artery duplex data and arteriographic evaluation of the same patients from 5727-3967. Q / A Sens. Spec. PPV NPV Accuracy Carotid 93% 98% 97% 95% 96% Signed by DERICK LAUREN on 2011-05-10 04:41:58 PM VASCUBASE VB Text Report End of Report VASCUBASE 05/10/2011 12:2 9 PM EDT Italo Mae MD VASCULAR ORDERABLES VASCUBASE documented in this encounter Visit Diagnoses Diagnosis CAD (coronary artery disease) Coronary atherosclerosis of unspecified type of vessel, habematolel or graft documented in this encounter Care Teams Resolution Analyst Relationship Specialty Start Date End Date Vipin Ramires MD [address] [place] [address] PCP - General 07/14/10 documented as of this encounter
--- OUTSIDE RECORDS SUMMARY | 2024-07-14 14:55 | XMS_ITS | Encounter Summary ---
[facility] Organization [facility] [place] [address] Care Team Providers Care City Route Driver Name Role Phone Vipin Ramires MD Primary Care Provider [phone] Encounter Details Date Type Department Care Team (Latest Contact Info) Description 05/10/2011 10:00 AM EDT [place] [phone] CAD (coronary artery disease) Social History Tobacco Use Types Packs/Day Years Used Date Smoking Tobacco: Former Cigarettes Q uit: 07/22/2009 Smokeless Tobacco: Never Sex and Gender Information Value Date Recorded Sex Assigned at Not on file Gender Identity Not on file Sexual Orientation Not on file documented as of this encounter Progress Notes * Manoj Delaney, RN - 05/10/2011 10:52 AM EDT Patient arrived in [facility] for CT surgery teaching and preadmission testing. Written and verbal instructions for use along with Hibiclens soap was given to the patient. Pain scale was reviewed with the patient as well as the importance of pain control,pulmonary toilet, and the use of an incentive spirometer. The patient expressed an understanding of matierials reviewed. Patient answered yes to being controlled by someone. He states that his answers his questions for him and is a little controlling, she was in the room as we were talking about it, and she states she is worried about him and if afraid he is going to forget something. She is just taking care of him. They were both laughing and joking about it. He states he has sleep apnea and has a CPAP machine which he rarely uses because it is not comfortable for him. I encouraged him to go back and get it adjusted so he might use it more often. He states his pain is about a 2 daily, he takes nitro when it is more intense. He states he is going to have a heart cath next week sometime before the surgery. documented in this encounter Plan of Treatment Not on file documented as of this encounter Procedures Procedure Name Priority Date/Time Associated Diagnosis Comments EKG 12-LEAD Routine 05/10/2011 10:55 AM EDT CAD (coronary artery disease) documented in this encounter Results * EKG 12 Lead (05/10/2011 10:55 AM EDT) Ventricular rate 55 BPM MUSE SYSTEM Atrial Rate 55 BPM MUSE SYSTEM P-R Interval 188 ms MUSE SYSTEM QRS Duration 124 ms MUSE SYSTEM Q-T Interval 454 ms MUSE SYSTEM QTC Calculated (Bezet) 434 ms MUSE SYSTEM Calculated P [place] 53 degrees MUSE SYSTEM Calculated R [place] -54 degrees MUSE SYSTEM Calculated T [place] -10 degrees MUSE SYSTEM INTERPRETATION Sinus bradycardia Left axis deviation Non-specific intra-ventricu lar conduction delay Abnormal ECG When compared with ECG of 16-DEC-2009 08:00, Inverted T waves have replaced nonspecific T wave abnormality in Inferior leads Confirmed by MD Wendy, Jaime ([id number]) on 05/11/2011 4:42:32 PM MUSE SYSTEM 05/10/2011 10:5 5 AM EDT 05/11/2011 4:42 PM EDT Italo Mae MD ECG ORDERABLES MUSE SYSTEM documented in this encounter Visit Diagnoses Diagnosis CAD (coronary artery disease) Coronary atherosclerosis of unspecified type of vessel, [place] or graft documented in this encounter Care Teams City Route Driver Relationship Specialty Start Date End Date Vipin Ramires MD [address] [place] [address] PCP - General 07/14/10 documented as of this encounter
--- OUTSIDE RECORDS SUMMARY | 2024-07-14 14:55 | XMS_ITS | Encounter Summary ---
Author Organization [facility] Address [address] [place] [address] Care Team Providers Care Radio Rigger Name Role Phone Unavailable Primary Care Provider Unavailabl e Encounter Details Date Type Department Care Team (Late st Contact Info) Description 05/30/2008 Before PRISM Converted Visit (Maple) [facility] conversion [address] [place], [place] [id number] Cristofer Mehta MD [address] [facility] [address] [place] [address] Social History Tobacco Use Types Packs/Day Years Used Date Smoking Tobacco: Never Assessed Sex and Gender Information Value Date Recorded Sex Assigned at Not on file Legal Sex Male 18:23 EST Gender Identity Not on file Sexual Orientation Not on file documented as of this encounter Consult Notes * Cristofer Mehta MD - 03/15/2009 0704 EDT DIVISION OF GENERAL SURGERY CONSULTATION - 05/30/2008 A consultation was requested by Dr. Rg Juarez for persistent dysphagia after Warner fundoplication. PROBLEM Dysphagia after Warner fundoplication. HISTORY OF PRESENT ILLNESS I was asked to see Hector Mendez in the office today in consultation by Dr. Rg Juarez for persistent dysphagia after Warner fundoplication. This is a 47man with a history of persistent dysphagia to solid foods since his laparoscopic Warner fundoplication seven years ago. His surgery was done in [facility] at that time. Apparently, that surgeon is no longer in the area. He was referred to Dr. Juarez for this persistent dysphagia, and Dr. Juarez directed him to me for surgical evaluation. Despite the patient having dysphagia, he has no heartburn, which was his original symptom. He cannot belch and does have excess flatus with some gas- bloat. Last night for dinner he had a cheeseburgerand hotdog. He can eat this with smaller bites, but itdifficult to pass. With this dysphagia, he has had no weight loss. Of note, he never had esophageal manometry prior to surgery. He did have one dilatation with an 18-cm balloon, dilated, but this really did not help his symptoms. He comes today to discussthe possibility of revision of his Warner fundoplication to help the dysphagia and gas-bloat symptoms. PAST MEDICAL HISTORY Significant for coronary artery disease and hypercholesterolemia. PAST SURGICAL HISTORY Right-hand surgery and also laparoscopic Warner fundoplication. FAMILY HISTORY Coronary artery disease. SOCIAL HISTORY Cigarettes, half pack per day. Alcohol, none. CURRENT MEDICATIONS 1. Paxil 60 mg p.o. daily. 2. Aspirin 325 mg p.o. daily. 3. Prilosec 20 mg p.o. daily. 4. Toprol 80 mg p.o. daily. 5. Sinemet half-tablet p.o. daily. 6. Aleve 200 mg p.o. b.i.d. 7. Simvastatin 200 mg p.o. daily. 8. Trazodone 25 mg p.o. daily. 9. Plavix 75 mg p.o. daily. 10. Sublingual nitroglycerin as needed. ALLERGIES NONE, BUT A SENSITIVITY TO CODEINE. REVIEW OF SYSTEMS No shortness of breath. No chest pain. Has restless leg syndrome. Has had PTCA with stent placementtwice, last one was done in January of [address] Chin as his thinner sprayer down in [facility]. All other systems reviewed and negative. PHYSICAL EXAM Height is 5 feet 10 inches. Weight is 180 pounds. Afebrile. Vital signs are stable. General: No acute distress. HEENT: Normal. Neck: Supple. Skin: Normal. Lungs: Clear bilaterally. Heart: Regular rate and rhythm. Abdomen is soft, nondistended, nontender, no masses. Scars are almost completely faded. Vascular: Normal. Musculoskeletal: Normal. Neurologic: Normal. I reviewed his old operative report. It seemed like it was an excellent technical procedure with repair of the diaphragmatic crura behind the 60-Korean bougie dilator and a normal length wrap of approximately an inch done over that same 60-Korean bougie dilator. It is unlikely that the wrap is too long causing his dysphagia. The patient had esophageal manometry, which showed normal liquid and viscous bullous transit and normal test. ASSESSMENT Persistent dysphagia after laparoscopic Warner fundoplication. Etiology is unclear although could be some scarring or tightness of the diaphragm and/or wrap. It seems the surgery was technically appropriate including mobilization of the fundus of his stomach. He has not had an adequate dilatation yet, and that would always be the first procedure prior to undergoing a reoperative Warner fundoplication,which could be wrought with difficulty. Options would include taking the wrap down entirely andcontinuing on PPIs indefinitely. This was not acceptable to him. Other options could be taking the full wrap down to a partial wrap, knowing that there could be a better chance that the reflux will return over time. Again, it is not a great option. Furthermore, the patient has recently had a cardiac catheterization with stent placement and is on Plavix, which would prohibit surgery. I am sure his thinner sprayer would not want him to get off the Plavix, at least for the first year after placement considering that his situation now does allow himto eat and maintain his weight and is not life threatening. PLAN I think we will hold on any intervention for now. First intervention would be with Dr. Juarez sometime next summer, which would require a large-diameter dilatation first. If that is unsuccessful and he continues to have dysphagia affecting his quality of life, we can always entertain the possibility of reoperative antireflux surgery taking a full wrap down to a partial wrap with its associated risks. The patient understood this plan and will follow up with Dr. Juarez sometime next summer. Signed by Cristofer Mehta MD, FACS 06/11/2008 09:10 Cristofer Mehta MD, FACS [phone] - Cristofer Mehta MD, FACS - Job ID: [id number] Doc ID: [id number] cc: MD IVET Araujo MD Stephen L Willis, MD documented in this encounter Plan of Treatment Not on file documented as of this encounter Visit Diagnoses Not on filedocumented in this encounter
--- OUTSIDE RECORDS SUMMARY | 2024-07-14 14:55 | XMS_ITS | Encounter Summary ---
Author Organization [facility] Address [facility] [place] [address] Care Team Providers Care Cobbler Mckay Name Role Phone Vipin Ramires MD Primary Care Provider [phone] Reason for Visit * Reason Onset Date Comments Coronary Artery Disease 05/17/2011 Cath Tea carol Encounter Details Date Type Department Care Team (Late st Contact Info) Description 05/17/2011 Telephone Cardiology at [address] [phone] Earnest Herrera MD [facility] [place] [address] Coronary Artery Disease (Cath Teaching) Social History Tobacco Use Types Packs/Day Years Used Date Smoking Tobacco: Former Cigarettes Q uit: 07/22/2009 Smokeless Tobacco: Never Sex and Gender Information Value Date Recorded Sex Assigned at Not on file Gender Identity Not on file Sexual Orientation Not on file documented as of this encounter Miscellaneous Notes * Telephone Encounter - Carlene Burrell LPN - 05/17/2011 12:00 PM EDT Pre Cardiac Cath/PTCA Phone Teaching Note Date of Cath:05/18/2011 Indication:_COR/?PCI Date of Labs:(within 30 days)_05/10/2011 Date of EKG:_05/10/2011 Medications: Stop Metformin 48 hour prior (yes )Last dose_05/16 AM Insulin orders given Stop Coumadin days prior ( ) Last dose _n/a Does patient have a contrast or shellfish allergy? no If yes, was Prednisone RX given?_n/a Does patient have abnormal renal functions?__no If yes, was Mucomyst RX given?_n/a Back Pain management: Understands potential for back pain.(yes ) Identifies pain management strategies. (yes ) Teach 0-10 pain intensity scale. (yes ) Education: Patient understands purpose of cardiac cath/PTCA. (yes ) Patient understands pre and post procedure care. (yes ) Date of call:__05/17/2011 Spoke with:__Pt Comments: documented in this encounter Plan of Treatment Not on file documented as of this encounter Visit Diagnoses Not on filedocumented in this encounter Care Teams Cobbler Mckay Relationship Specialty Start Date End Date Vipin Ramires MD [address] [place] [address] PCP - General 07/14/10 documented as of this encounter
--- OUTSIDE RECORDS SUMMARY | 2024-07-14 14:55 | XMS_ITS | Encounter Summary ---
Author Organization [facility] Address [facility] [address] Care Team Providers Care Job Development Specialist Name Role Phone Vipin Ramires MD Primary Care Provider [phone] Encounter Details Date Type Department Care Team (Latest Contact Info) Description 05/18/2011 9:05 AM EDT - 05/18/2011 4:32 PM EDT Hospital Encounter [place] [address] Earnest Herrera MD [facility] [place] [address] CAD (coronary artery disease) Discharge Disposition: Home [...] this encounter Discharge Instructions * Discharge Instructions* Dianna Lawson RN - 05/18/2011 2:43 PM EDT Wound [...] questions or concerns, please call the main [facility] [place] and ask for the terrazzo laborer business continuity coordinator. Activity If you are discharged the same [...] by your doctor, do not take any [id number] medicines or herbal preparations without first discussing this with your doctor or pharmacist. There is the possibility of side effect and interactions when these are combined. Follow up Care Who to Call with Questions or Problems If there are any questions or problems that you think might be related to your cardiac cath or angioplasty, contact the terrazzo laborer business continuity coordinator by calling [facility] at . documented in this [...] Indications: Depression PARoxetine (PAXIL) 20 mg tabletIndications:depres jose manuel Take 20 mg by mouth every morning. [...] without difficulty. Getting dressed. 1620- call to ballistics laboratory gunsmith- Per - pt to hold metformin x48 [...] LAB USE ONLY (05/18/2011 9:29 AM EDT) Pathologist [facility] Glucose, POC 123 60 - 199 mg/dL [facility] Comment: Supplemental ranges: <110 mg/dL before meals <200 mg/dL all other times of the day Blood specimen (specimen) 05/18/2011 9:29 AM EDT 05/18/2011 9:29 AM EDT Earnest Herrera MD POINT OF CARE TEST O RDERABLES [facility] * A-DIFF (05/18/2011 9:18 AM EDT) Neutrophil [...] EDT Earnest Herrera MD HEMATOLOGY ORDERABLE S [facility] MELOENNIUM * CBC (with Diff) (05/18/2011 9:18 AM [...] following risk cutoff thresholds for the [place] population: Desirable: <200 mg/dL Borderline High: 200-239 mg/dL High: > or = 240 mg/dL Triglyceride 133 <=149 mg/dL [facility] Comment: Reference Range: Normal triglycerides: ??<150 mg/dL Borderline high: ??150-199 mg/dL High: ??200-499 mg/dL Very high: ??>th=467 mg/dL AFIA 2001; 285(19):4295-0005 HDL Cholesterol 39(L) >=40 mg/dL [facility] Comment: Reference range: ??Low HDL: ?? < 40 mg/dL ??Normal: ?40-60 mg/dL ??Desirable: > 60 mg/dL AFIA 2001; 285(19):6142-8152 LDL Cholesterol 76 <=99 mg/dL [facility] Comment: Reference range: ?? Optimal: ?<100 mg/dL ?? Near Optimal/Above Optimal: ?? 100-129 mg/dL ?? Borderline high: ?130-159 mg/dL ?? High: ? 160-189 mg/dL ?? Very high: ?>hm=982 mg/dL AFIA 2001: 285(19):6174-4572 Cholesterol/HDL Ratio 3.[address] [facility] Comment: A Cholesterol to HDL ratio below 4:1 is desirable. ??Studies suggest that increased CAD risk occurs at ratios above 5 for females and above 6 for men. ? [place] Heart Association ??(http://www.americanheart.org) ? Minda Int Med, 1994; 121:641 ? AM J Med, 1998; 105(1A):48S Blood specimen (specimen) 05/18/2011 9:18 AM EDT 05/18/2011 9:41 AM EDT Earnest Herrera MD CHEMISTRY ORDERABLES [facility] * (ABNORMAL) BMP w/fasting Glucose (05/18/2011 9:18 AM EDT) Glucose Fasting 136(H) 65 - 99 mg/dL [facility] Comment: ?Fasting* Glucose Interpretive Criteria Normal [...] of Diabetes Mellitus, Position Statement from the [place] Diabetes Association. ??Diabetes Care, Volume 33, Supplement [...] Herrera MD CHEMISTRY ORDERABLES Performing Organization Address [facility] Co de Phone Number CHATO SANON * Prothrombin Time (05/18/2011 9:18 AM EDT) Prothrombin Time 13.0 12.3 - 14.7 sec [facility]ATO SANON Comment: [facility] Transfusion Committee Guidelines: INR less than [...] MD HEMATOLOGY ORDERABLE S Performing Organization Address [facility] de Phone Number CHATO SANON documented in this encounter Visit Diagnoses Diagnosis CAD (coronary artery disease) Coronary atherosclerosis of unspecified type of vessel, [place] or graft documented in this encounter Administered Medications Inactive Administered [...] Given 05/18/2011 10:38 AM EDT 25 mg sodium chloride 0.9% infusion 100 mL/hr, [...] MD) documented in this encounter Care Teams Job Development Specialist Relationship Specialty Start Date End Date Vipin Ramires MD [address] [place] [address] PCP - General 07/14/10 documented as of this encounter
--- OUTSIDE RECORDS SUMMARY | 2024-07-14 14:55 | XMS_ITS | Encounter Summary ---
Author Organization [facility] Address [facility] [place] [address] Care Team Providers Care Electronics Specialist Name Role Phone Vipin Ramires MD Primary Care Provider [phone] Reason for Visit * Reason Comments Chest Pain Encounter Details Date Type Department Care Team (Late st Contact Info) Description 05/18/2011 7:40 AM EDT Follow-Up Cardiology at [address] [phone] Earnest Herrera MD [facility] [address] CAD (coronary artery disease) (Primary Dx) Discharge [...] Sign Reading Time Taken Comments Blood Pressure 104/62 05/18/2011 8:03 AM EDT Pulse 64 05/18/2011 8:03 AM EDT Temperature - - Respiratory Rate - - Oxygen Saturation - - Inhaled Oxygen Concentration - - Weight 82.1 kg (181 lb) 05/18/2011 8:03 AM EDT Height 175.3 cm (5' 9) 05/18/2011 8:03 AM EDT Body Mass Index 26.73 05/18/2011 8:03 AM EDT documented in this encounter Progress Notes * Earnest Herrera MD - 05/18/2011 9:12 AM EDT Images from the original note were not included. Formerly [facility] [address], [place] [address] CARDIOLOGY OUTPATIENT CONSULTATION [facility] Hector Mendez Jr. 05/18/2011 Primary Care Provider: VIPIN RAMIRES MD REFERRING PROVIDER: Italo Mae CHIEF COMPLAINT: Chief Complaint Patient presents with ??? Chest Pain PROBLEM LIST: 1. Coronary artery disease A. Status post non-STEMI, June 2007 with 2 cipher stent to the RCA B. Recurrent angina, February 2008, 3X18mm Promus to RCA C. Recurrent angina with catheterization, 2008 showing progressive LAD disease with subsequent CABGx3 (ALVARADO to LAD, SVG to diagonal, SVG to RCA D. Catheterization 1999 and demonstrated an occluded saphenous vein graft to RCA, occluded vein graft to diagonal, patent ALVARADO to LAD, patent [place] RCA; medical therapy E. Nuclear stress test April 2011 demonstrates moderate size reversible anterior defect 2. Diabetes mellitus, type II on oral agents 3. Tobacco abuse, quit smoking 2008 with 30 pack years 4. Hyperlipidemia 5. Restless leg syndrome, currently using Sinemet 6. Depression and anxiety, requiring multiple medications 7. Esophageal reflux disease 8. Sleep apnea, currently using CPAP 9. Erectile dysfunction HISTORY OF PRESENT ILLNESS: 50-year-old male presents in consultation regarding coronary artery disease. As noted above, he has multivessel coronary disease and underwent bypass several years ago hisprevious stents to the right coronary artery have remained patent, but 2 of his bypass grafts had closed in the interim time period as a result, he has a diagonal which is moderate in size which doesnot have good perfusion. He's had stable angina for the last year, which has possibly been worse over the last few months. His main complaint is fatigue and depression. He uses several nitroglycerin per month. A recent stress test demonstrated reversible ischemia in the anterior and anterolateral cheek. He was therefore referred back to Dr. Mae for consideration of repeat bypass surgery. He is now referred to me for consideration of cardiac catheterization. He seen in conjunction with his at today's appointment. PAST MEDICAL HISTORY: Reviewed and updated as appropriate in the medical record. Patient Active Problem List Diagnoses ??? Angina ??? DJD (degenerative joint disease) Of hand ??? Depression ??? Dyspnea on exertion ??? Hyperlipidemia ??? Double vessel coronary artery disease ??? GERD (gastroesophageal reflux disease) ??? Restless legs ??? CIS - Tobacco user SOCIAL HISTORY: Reviewed and updated as appropriate in the medical record. FAMILY HISTORY: Reviewed and updated as appropriate in the medical record. MEDICATIONS: metFORMIN (GLUCOPHAGE) 1,000 mg tablet; isosorbide mononitrate (IMDUR) 60 mg 24 hr tablet; buPROPion (WELLBUTRIN XL) 300 mg 24 hr tablet; PARoxetine (PAXIL) 20 mg tablet; carbidopa-levodopa (SINEMET) 25-100 mg per tablet; ALPRAZolam (XANAX) 0.5 mg tablet; simvastatin (ZOCOR) 80 mg tablet; zolpidem (AMBIEN) 10 mg tablet; aspirin 325 mg EC tablet; ALPRAZolam (XANAX) 2 mg tablet; nitroGLYcerin (NITROSTAT) 0.4 mg SL tablet metoprolol succinate (TOPROL-XL) 100 mg XL tablet; naproxen sodium (ALEVE) 220 mg tablet; lamoTRIgine (LAMICTAL) 100 mg tablet ALLERGIES: Reviewed and updated as appropriate in the medical record. PHYSICAL EXAMINATION: Vitals: Filed Vitals: 05/18/11 0803 BP: 104/62 Pulse: 64 Exam Details: On exam he appeared in good health and spirits. Vital signs as documented. Skin warm and dry and without overt rashes. Neck without JVD. Lungs clear. Heart exam notable for regular rhythm, normal sounds and absence of murmurs, rubs or gallops. Abdomen unremarkable and without evidenceof organomegally, masses, or abdominal aortic enlargement. Extremities non-edematous. ASSESSMENT: Exertional angina, with known obstructive coronary artery disease. Recent stress test suggesting anterior and anterolateral ischemia. He has a known occluded LAD which is filled via the ALVARADO bypass. 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 We discussed the risks and benefits of catheterization and informed consent was obtained. We will plan fordiagnostic angiography. If there is new flow limiting disease in the RCA, we'll likely proceed with percutaneous revascularization option. However, provided that his ALVARADO to the LAD is patent, I would not risk opening the total occlusion of the LAD as this would likely jeopardize the long-term patency of the ALVARADO. Rather,he feels he can live with his anginal symptoms if this is only a diagonal problem. I will defer to Dr Mae the option for repeat bypass to the diagonal. RECOMMENDATIONS: 1. Catheterization as above. Risks, benefits, and alternatives were discussed with the patient and informed consent was obtained. 2. Followup will be with his linker up, Dr. Neri. Thank you for requesting this consultation. For questions, please feel free to contact me via any of the following methods: Email: [email or web address] documented in this encounter Procedure Notes * Provider, Scanning - 05/18/2011 8:47 AM EDTAssociated Order(s): SCAN DOC: STRESS TEST documented in this encounter Plan of Treatment Not on file documented as of this encounter Procedures Procedure Name Priority Date/Time Associated Diagnosis Comments POCT GLUCOSE Routine 05/18/2011 11:56 AM EDT STRESS TEST SCAN 05/18/2011 8:47 AM EDT documented in this encounter Results * POCT GLUCOSE LAB USE ONLY (05/18/2011 11:56 AM EDT) [facility] Glucose, POC 108 60 - 199 mg/dL [facility] Comment: Supplemental ranges: <110 mg/dL before meals <200 mg/dL all other times of the day Blood specimen (specimen) 05/18/2011 11:56 AM EDT 05/18/2011 11:56 AM EDT Earnest Herrera MD POINT OF CARE TEST O RDERABLES [facility]ATO SANON * SCAN DOC: STRESS TEST (05/18/2011 8:47 AM EDT) Anatomical Region Laterality Modality Other Narrative 05/18/2011 8:55 AM EDT Procedure Note Provider, Scanning - 05/18/2011 8:47 AM EDT Scanning Provider MEDIA MGR SCAN EXT O RDR/RSLT documented in this encounter Visit Diagnoses Diagnosis CAD (coronary artery disease)- Primary Coronary atherosclerosis of unspecified type of vessel, [place] or graft documented in this encounter Care Teams Electronics Specialist Relationship Specialty Start Date End Date Vipin Ramires MD [address] [place] [address] PCP - General 07/14/10 documented as of this encounter
--- OUTSIDE RECORDS SUMMARY | 2024-07-14 14:55 | XMS_ITS | Encounter Summary ---
Author Organization [facility] Address [address] [place] [address] Care Team Providers Care Professor Of Surgery Name Role Phone Unavailable Primary Care Provider Unavailabl e Encounter Details Date Type Department Care Team (Late st Contact Info) Description 12/09/2000 16:39 EDT Hospital Encounter [facility] - Other [address] [place] [address] Jurgen Rachel MD [address] [place] [phone] Unknown, Provider, Social History Tobacco Use Types Packs/Day Years [...] Procedure Name Priority Date/Time Associated Diagnosis Comments SURGICAL PATHOLOGY Routine 12/09/2000 0:00 EDT documented in this encounter Results * SURGICAL PATHOLOGY (12/09/2000 0:00 EDT) Pathology Report: SURGICAL PATHOLOGY REPORT Reports generated via electronic interface contain original data; however they are lacking the format of the original report. Caution should be taken when reading/interpreti ng unformatted reports. Name: ? PAULA MENDEZ ? Accession #: ? [id number] ? : ? 1960 (Age: 40) ??M ? Collect Date: ? 12/09/2000 ? Location: ? [facility] ? Receive Date: ? 12/09/2000 ? Provider: RICK RACHEL MD Copy to: JANETTE KENNEDY MD ? Final Pathologic Diagnosis: ? EG junction, biopsies: 1. ?Cardiac and oxyntic type mucosa with active chronic inflammation and reactive epithelial changes. 2. ?Negative for dysplasia. 3. ?No intestinal metaplasia identified (PAS/AB stain). 4. ?Dora stain negative for Helicobacter pylori-like microorganisms. 5. ?Separate fragments of squamous mucosa with mild reflux change. ?? Document reviewed and electronically signed by: SARIAH ODOM MD Report ??Date: 12/14/2000 13:00 By the signature above, the attending physician certifies that he/she has personally conducted a gross and/or microscopic examination of the described specimens and rendered or confirmed the above diagnosis. Specimen(s) Received: ? Bx EG junction Clinical History: ? Small HH, 3 reflux Gross Description: ? Received in Hollande' s fixative labelled Simard and bx EG junction are three, arellano-strickland, irregular, 0.2 x 0.2 x 0.2 cm soft tissue fragments. ??The specimen is entirely submitted in one cassette. ??(Edwina Bhatia)/[facility] End of Report [facility] 12/09/2000 12/09/2000 15: 11 EDT us Jurgen Rachel MD PATHOLOGY ORDERABLES Final Res ult [facility] [address] [place] [address] documented in this encounter Visit Diagnoses Not on filedocumented in this encounter
--- OUTSIDE RECORDS SUMMARY | 2024-07-14 14:55 | XMS_ITS | Encounter Summary ---
Author Organization [facility] Address [address] [place] [address] Care Team Providers Care Equipment Monitor Phototypesetting Name Role Phone Unavailable Primary Care Provider Unavailabl e Encounter Details Date Type Department Care Team (Late st Contact Info) Description 01/25/2011 Results Only [facility] Services - [facility] ([facility]) [address], [place] [address] Moses Rose MD [address] [place] [address] Social History Tobacco Use Types Packs/Day Years [...] Date/Time Associated Diagnosis Comments SURGICAL PATHOLOGY Routine 01/25/2011 0:00 EDT documented in this encounter Results * SURGICAL PATHOLOGY (01/25/2011 0:00 EDT) Pathology Report: SURGICAL PATHOLOGY REPORT ? Reports generated via electronic interface contain original data; ? however they are lacking the format of the original report. ? Caution should be taken when reading/interpreti ng unformatted reports. ? Name: ? SIMARD, PAULA P ? Accession #: ? [id number] ? : ? 1960 (Age: 50) ??M ? Collect Date: ? 01/25/2011 ? Location: ? [facility] ? Receive Date: ? 01/25/2011 ? Provider: MOSES ROSE MD ? Copy to: JANETTE CROUCH MD ? Final Pathologic Diagnosis: ? A. ?Colon, transverse, polyp, biopsy: ? 1. ?? Tubular adenoma. ? B. ?Colon, sigmoid, polyps, biopsies: ? 1. ?? Fragments of hyperplastic polyp. ? Document reviewed and electronically signed by: ? EMILIA DIGGS MBCHB ? Report ??Date: 01/27/2011 15:36 ? By the signature above, the attending physician certifies that he/she has ? personally conducted a gross and/or microscopic examination of the described ? specimens and rendered or confirmed the above diagnosis. ? Specimen(s) Received: ? A. ?Transverse colon polyp ? B. ? Sigmoid polyps x2 ? Clinical History: ? Rectal bleeding, colorectal screen ? Gross Description: ? Received in formalin labelled Simard, Paula and transverse colon polyp are three light arellano polyps which vary in size from 0.3 x 0.1 x 0.1 cm up to 0.5 x 0.3 x 0.2 cm. ??The specimens are submitted intact as (A). ? Received in formalin labelled Simard, Paula and sigmoid polyp x2 are two ?? light arellano polypoid structures measuring 0.4 x 0.2 x 0.2 cm and 0.7 x 0.3 x 0.3 ?? cm. ??The smaller specimen is submitted intact as (B1). ??The larger is inked, ? trisected and submitted entirely as (B2). (Maia Mcadams/leslie ? End of Report ? [facility] 01/25/2011 01/25/2011 18: 17 EDT us Moses Rose MD PATHOLOGY ORDERABLES Final Resul t [facility] [address] [place] [address] documented in this encounter Visit Diagnoses Not on filedocumented in this encounter
--- OUTSIDE RECORDS SUMMARY | 2024-07-14 14:55 | XMS_ITS | Clinical Summary ---
Author Organization [facility] Address [facility] [place] [address] Care Team Providers Care Manual Arts Therapy Teacher Name Role Phone Vipin Ramires MD Primary Care Provider [phone] Allergies Active Allergy Reactions Criticality Noted Date Comments Acetaminophen-Codeine Nausea And Vomiting Oxycodone Medications Medication Sig Dispensed Refills Start Date End Date Status carbidopa-levodopa (SINEMET) 25-100 mg per tablet Take 1 tablet by mouth nightly. Active ALPRAZolam (XANAX) 0.5 mg tablet Take 0.5 mg by mouth nightly. Active simvastatin (ZOCOR) 80 mg tablet Take 80 mg by mouth nightly. Active zolpidem (AMBIEN) 10 mg tablet Take 10 mg by mouth nightly. Active aspirin 325 mg EC tablet Take 325 mg by mouth daily. Active ALPRAZolam (XANAX) 2 mg tablet Take 2 mg by mouth daily. Active nitroGLYcerin (NITROSTAT) 0.[address] 0.4 mg under the tongue every 5 minutes as needed. Active metoprolol succinate (TOPROL-XL) 100 mg XL tablet Take 100 mg by mouth daily. Active naproxen sodium (ALEVE) 220 mg tablet Take 220 mg by mouth as needed. Active lamoTRIgine (LAMICTAL) 100 mg tablet Take 100 mg by mouth daily. Active metFORMIN (GLUCOPHAGE) 1,000 mg tabletIndications:typ e 2 diabetes mellitus Take 1,000 mg by mouth 2 times daily (with meals). Indications: Type 2 Diabetes Mellitus Active isosorbide mononitrate (IMDUR) 60 mg 24 hr tabletIndications:Ang chase Pectoris Prevention Take 60 mg by mouth daily. Indications: Angina Pectoris Prevention Active buPROPion (WELLBUTRIN XL) 300 mg 24 hr tabletIndications:dep ression Take 300 mg by mouth every morning. Indications: Depression Active PARoxetine (PAXIL) 20 mg tabletIndications:dep ression Take 20 mg by mouth every morning. Takes 1 1/2 tab = 60 mg Indications: Depression Active Active Problems Problem Noted Date Diagnosed Date DJD (degenerative joint disease) 05/17/2011 Overview (05/21/2012): Of hand Depression 05/17/2011 Dyspnea on exertion 05/17/2011 Hyperlipidemia 05/17/2011 Double vessel coronary artery disease 05/17/2011 GERD (gastroesophageal reflux disease) 1 Restless legs 05/17/2011 Angina pectoris 05/10/2011 Overview (05/29/2011): Dx replacement utility run on deactivated IMO Dx [id number] CIS - Tobacco user 03/11/2008 Immunizations Name Administration Dates Next Due Influenza Vaccine, Whole 05/22/2009,05/22/2008,1 Pneumococcal 23-Valent Polys accharide (Pneumovax 23) 07/03/2007 Social History Tobacco Use Types Packs/Day Years Used Date Smoking Tobacco: Former Cigarettes Q uit: 07/22/2009 Smokeless Tobacco: Never Sex and Gender Information Value Date Recorded Sex Assigned at Not on file Gender Identity Not on file Sexual Orientation Not on file Last Filed Vital Signs Vital Sign Reading [...] Mass Index 26.73 05/18/2011 9:30 AM EDT Plan of Treatment Health Maintenance Due Date Last Done Comments CT Colonography 1960 Colonoscopy 1960 Colorectal Cancer Screening 1960 FIT DNA 1960 FIT 1960 Sigmoidoscopy (10 year) with FIT yearly 1960 Sigmoidoscopy 1960 HIV screen 1978 Hepatitis C Screening 1978 Tetanus/Diphtheria/Pertussis Vaccines (1 - Tdap) 1979 Zoster vaccine (1 of 2) 2010 Advance Directive 2015 Lipid Screening 05/18/2016 05/18/2011 Covid-19 Vaccine (1 - 2023- season) 2024 Influenza (Flu) vaccine (1 o f 1 - Influenza standard series) 04/22/2024 05/22/2009, 05/22/2008, 05/22/2007 Procedures Procedure Name Priority Date/Time Associated Diagnosis Comments LIPID PANEL (REFLEX DIRECT LDL) STAT 05/18/2011 9:18 AM EDT from Last 3 Months or Most Recently Relevant to Health Maintenance Results * (ABNORMAL) Lipid panel (fasting) (05/18/2011 9:18 AM EDT) Cholesterol, Total 142 <=199 mg/dL [facility] Comment: Recommendations of the NCEP Adult Treatment Panel for the following risk cutoff thresholds for the [place] Citizen [place] population: Desirable: <200 mg/dL Borderline High: 200-239 mg/dL High: > or = 240 mg/dL Triglyceride 133 <=149 mg/dL CERNER MILL[facility]NI[facility] Comment: Reference Range: Normal triglycerides: ??<150 mg/dL Borderline high: ??150-199 mg/dL High: ??200-499 mg/dL Very high: ??>us=311 mg/dL AFIA 2001; 285(19):4993-3323 HDL Cholesterol 39(L) >=40 mg/dL [facility] Comment: Reference range: ??Low HDL: ?? < 40 mg/dL ??Normal: ?40-60 mg/dL ??Desirable: > 60 mg/dL AFIA 2001; 285(19):9454-1210 LDL Cholesterol 76 <=99 mg/dL [facility] Comment: Reference range: ?? Optimal: ?<100 mg/dL ?? Near Optimal/Above Optimal: ?? 100-129 mg/dL ?? Borderline high: ?130-159 mg/dL ?? High: ? 160-189 mg/dL ?? Very high: ?>mw=495 mg/dL AFIA 2001: 285(19):6036-9316 Cholesterol/HDL Ratio 3.6 ratio [facility]ER [facility]ILL[facility] Comment: A Cholesterol to HDL ratio below 4:1 is desirable. ??Studies suggest that increased CAD risk occurs at ratios above 5 for females and above 6 for men. ? Citizen Of [place] Heart Association ??(http://www.americanheart.org) ? Minda Int Med, 1994; 121:641 ? AM J Med, 1998; 105(1A):48S Blood specimen (specimen) 05/18/2011 9:18 AM EDT 05/18/2011 9:41 AM EDT Earnest Herrera MD CHEMISTRY ORDERABLES Performing Organization Address City/State/[facility] Co ne Phone Number ELIANENER MILLENNIUM from Last 3 Months or Most Recently Relevant to Health Maintenance Care Teams Manual Arts Therapy Teacher Relationship Specialty Start Date End Date Vipin Ramires MD [address] [place] [address] PCP - General 07/14/10
--- OUTSIDE RECORDS SUMMARY | 2024-07-14 14:55 | XMS_ITS | Encounter Summary ---
Author Organization [facility] Address [facility] [place] [address] Care Team Providers Care Remote Control Assembler Name Role Phone Vipin Ramires MD Primary Care Provider [phone] Encounter Details Date Type Department Care Team (Late st Contact Info) Description 05/13/2011 Orders Only Cardiology at [address] [phone] Earnest Herrera MD [facility] [place] [address] Social History Tobacco Use Types Packs/Day Years [...] Name Priority Date/Time Associated Diagnosis Comments CARDIAC CATHETERIZATION Routine 05/18/20 11 12:52 PM EDT documented in this encounter Results * Cardiac Catheterization (05/18/2011 12:52 PM EDT) Anatomical Region Laterality Modality Other Earnest Herrera MD CARDIAC CATH ORDERAB LES documented in this encounter Visit Diagnoses Not on filedocumented in this encounter Care Teams Remote Control Assembler Relationship Specialty Start Date End Date Vipin Ramires MD [address] [place] [address] PCP - General 07/14/10 documented as of this encounter
--- OUTSIDE RECORDS SUMMARY | 2024-07-14 14:55 | XMS_ITS | Encounter Summary ---
Author Organization [facility] Address [address] [place] [address] Care Team Providers Care Knife Changer Name Role Phone Unavailable Primary Care Provider Unavailabl e Encounter Details Date Type Department Care Team (Late st Contact Info) Description 10/05/1999 Results Only [facility] conversion [address] [place] [address] Victor Hugo Sexton, [place], [place] [id number] Social History Tobacco Use Types Packs/Day Years [...] Date/Time Associated Diagnosis Comments SURGICAL PATHOLOGY Routine 10/05/1999 15 :34 EST documented in this encounter Results * SURGICAL PATHOLOGY (10/05/1999 15:34 EST) Pathology Report: SURGICAL PATHOLOGY REPORT Reports generated via electronic interface contain original data; however they are lacking the format of the original report. Caution should be taken when reading/interpreti ng unformatted reports. Name: ? PAULA MENDEZ ? Accession #: ? [id number] ? : ? 1960 (Age: 39) ??M ? Collect Date: ? 10/05/1999 ? Location: ?Receive Date: ? 10/05/1999 ? Provider: Victor Hugo SEXTON DDS Copy to: Victor Hugo SEXTON DDS MARCO BOONE MD ? Final Pathologic Diagnosis: MICROSCOPIC DIAGNOSIS: ? 1. ??Oral mucosa, cyst, excision: ? - Squamous lined mucosal tissue with chronic inflammation and ? fibrosis consistent with inflamed dentigerous cyst. ? 2. ??Tooth, molar, excision: ? - Fragments of tooth, consistent with molar. ??Gross only. Document reviewed and electronically signed by: Conversion for MARINE ZHANG Report ??Date: 10/07/1999 00:00 By the signature above, the attending physician certifies that he/she has personally conducted a gross and/or microscopic examination of the described specimens and rendered or confirmed the above diagnosis. Specimen(s) Received: TISSUE SUBMITTED: ? 10-15 mm sac with complete impacted 3rd molar CLINICAL DATA: ? Dentigerous cyst; incidental finding on dental x-ray at time of ? infection Gross Description: GROSS: ? Received in formalin labelled Simard and impacted 3rd molar ? are three arellano-benz membranous focally hyperemic soft tissue ? fragment ranging from 0.5 x 0.4 x 0.2 cm to 1.2 x 0.3 x 0.2 cm. ? Also received in the same container is approximately one-third of ? a tooth consistent with a molar which measures 0.7 x 0.6 x 0.4 ? cm. ??No discrete nodules nor caries nor amalgam are grossly ? identified. ??The roots and one-half of the crown are not grossly ? identified. ??The soft tissue fragments are entirely submitted in ? one cassette. ??No sections are submitted of the tooth. ??(M. ? Cat)/richie End of Report [facility] 10/05/1999 15:3 4 EST 10/05/1999 15:35 EST Victor Hugo Sexton DDS PATHOLOGY ORDERABLES Collette rehman Result [facility] [address] [place] [address] documented in this encounter Visit Diagnoses Not on filedocumented in this encounter
--- OUTSIDE RECORDS SUMMARY | 2024-07-14 14:55 | XMS_ITS | Clinical Summary ---
Author Organization [facility] Address [address] [place] [address] Care Team Providers Care 3Rd Pressman Name Role Phone Vipin Ramires MD Primary Care Provider Unav ailable Social History Tobacco Use Types Packs/Day Years Used Date Smoking Tobacco: Never Assessed Sex and Gender Information Value Date Recorded Sex Assigned at Not on file Legal Sex Male 18:23 EST Gender Identity Not on file Sexual Orientation Not on file Plan of Treatment Health Maintenance Due Date Last Done Comments Hepatitis C Screen 1960 COVID-19 Vaccine (2023- season) 2024 RSV Immunization ( o r 60+ Years) (1 - 1-dose 75+ series) 2035 Care Teams 3Rd Pressman Relationship Specialty Start Date End Date Vipin Ramires MD PCP - General 01/27/11
--- NOTE | 2024-07-14 15:04 | ED.GENADUL_ITS ---
Discharge Plan Disposition Patient Disposition: Home Condition: Stable Discharge Details Clinical Impression: Chest pain Primary Care Provider: Unknown,Unknown ED Provider: Valeria Lamb Discharge Instructions Instructions: Chest Pain (DC) Additional Instructions: Your EKG is normal and your troponin level is undetectable. Please monitor your symptoms closely. If you have chest pain that persists, please follow-up with your night assistant when you return home as you might need an outpatient stress test or catheterization to further evaluate HPI General Date/Time Provider Initiated Documentation: 07/14/24 14:00 . Limitations to Documentation: no limitations . Information obtained by: patient . HPI Narrative: 64-year-old gentleman with past medical history of diabetes, hypertension, coronary artery disease (CABG in his early 40s, multiple stents, last stent 1 year ago) presents for evaluation of intermittent left-sided stabbing pain. Pain is brief, self resolved, not associated with exertion. Does not radiate. Not associated with shortness of breath, diaphoresis or nausea. This has been ongoing for the last 2 weeks. The does not note any exacerbating or relieving symptoms. He states that he has not followed up with his doctor in [place] where he lives, but he is just visiting [facility]. He reports that today is his first day in [facility]. Decided come to the emergency department as he just wanted to make sure that it was not anything bad. He denies an increase in the episodes. They do not seem to occur with any regularity. Related Data Allergies Allergy/AdvReac Type Severity Reaction Status Date / Time acetaminophen (From AdvReac Nausea Verified 07/14/24 14:07 Tylenol-Codeine #3) codeine (From AdvReac Nausea Verified 07/14/24 14:07 Tylenol-Codeine #3) General Stated Complaint: Chest Pain VIKAS: 3 Exam Narrative Exam Narrative: Review of Systems: All systems reviewed & are unremarkable except as noted in HPI and below Well-developed, no acute distress NCAT PERRL, normal conjunctiva RRR no murmur, no chest wall tenderness, CABG scar noted Unlabored respiratory effort clear bilaterally Nondistended abdomen soft nontender Extremities w/o edema Course Vital Signs Vital signs: Vital Signs Temperature 36.5 C 07/14/24 14:02 Pulse 74 07/14/24 14:02 Respiratory Rate 18 07/14/24 14:02 Blood Pressure 122/70 11/23/24 14:02 Pulse Oximetry 96 07/14/24 14:02 Temperature 36.5 C 07/14/24 14:02 Temperature Source Oral 07/14/24 14:02 Pulse 73 07/14/24 14:07 Pulse 72 07/14/24 15:00 Respiratory Rate 14 07/14/24 15:00 Respiratory Effort Normal, Non-Labored 07/14/24 14:18 Respiratory Depth Normal 07/14/24 14:18 Respiratory Pattern Normal 07/14/24 14:18 Blood Pressure 122/70 07/14/24 14:07 Blood Pressure Mean 85 07/14/24 14:07 Pulse Oximetry 94 07/14/24 15:00 Oxygen Delivery Method Room Air 07/14/24 14:02 Oxygen Flow Rate 0 07/14/24 14:02 Pain Level 4 07/14/24 14:02 Lab/Test Results Lab/Test Results: Laboratory Tests Range/Units 07/14/24 07/14/24 07/14/24 14:15 15:19 17:19 WBC (4.4-10.8) 10^3/uL 6.81 RBC (4.36-5.78) 10^6/uL 5.25 Hgb (13.5-17.5) g/dL 14.2 Hct (40.0-50.0) % 45.9 MCV (80-95) fL 87 MCH (27.0-33.0) pg 27.0 MCHC (32.0-36.0) % 30.9 L RDW (11.8-14.1) % 13.6 Plt Count (130-400) 10^3/uL 225 MPV (8.0-11.0) fL 9.0 Immature Gran % % 0.4 Neutrophils % % 68.0 Lymphocytes % % 21.6 Monocytes % % 7.2 Eosinophils % % 2.1 Basophils % % 0.7 Nucleated RBC % (0.0-0.3) % 0.0 Absolute Neutrophils (1.2-6.7) 10^3/uL 4.63 Absolute Lymphocytes (1.2-3.4) 10^3/uL 1.47 Absolute Monocytes (0.1-0.8) 10^3/uL 0.49 Absolute Eosinophils (0.0-0.7) 10^3/uL 0.14 Absolute Basophils (0.0-0.2) 10^3/uL 0.05 Sodium (136-145) mmol/L 146 H Potassium (3.5-5.1) mmol/L 4.5 Chloride (98-107) mmol/L 109 H Carbon Dioxide (21.0-32.0) mmol/L 30.6 Anion Gap (3-11) mmol/L 6.4 BUN (7-18) mg/dL 18 Creatinine (0.70-1.30) mg/dL 1.0 Est GFR (CKD-EPI 2020) (mL/min/1.73m2) 84.05 Glucose (74-106) mg/dL 100 Calcium (8.5-10.1) mg/dL 8.9 Magnesium (1.8-2.4) mg/dL 1.8 Total Bilirubin (0.2-1.0) mg/dL 0.66 AST (15-37) U/L 17 ALT (16-63) U/L 33 Alkaline Phosphatase (46-116) U/L 113 Troponin I (<or=76) ng/L < 4 Cancelled Cancelled NT-Pro-B Natriuret Pep (<300) pg/mL 23 Total Protein (6.4-8.2) g/dL 6.6 Albumin (3.4-5.0) g/dL 3.8 Medical Decision Making Emergent evaluation of chest pain. Patient does have significant coronary artery disease history. He reports compliance with his daily medications and has not missed any doses. He is not a smoker. The symptoms have been ongoing for 2 weeks, but there is no clear emergency department visit today. Particularly since he lives in [place]. His EKG was reviewed and independently interpreted: Sinus [address] segment changes. He is without any ches t pain at this time. His blood pressure is well-controlled. Initial differential includes unstable angina, skeletal pain, pneumonia. Lab work was reviewed. No leukocytosis or anemia. He had some mild elevation in sodium at 146 but I do not feel this is significant. There is no significant elevation in his glucose. Renal function is normal as well as liver function. His troponin is undetectable. Given that his symptoms have been ongoing for 2 weeks and that he has an undetectable troponin, I do not feel that sent additional troponin levels are indicated. I do recommend that the patient follow-up with his PCP when he returns home for further restratification if he has return of chest pain or persistent pain, he should return to the emergency department before that time. Quality:SDOH Health Related Social Needs: No Data to Display PFSH All Active Problems Chest pain (Acute) Social History Smoking risk assessment performed?: No
== END 2024-07-14 15:11 | disposition home or self-care (01) ==
PROVIDERS: Emergency Provider Emergency Medicine
DX: R07.9 Chest pain, unspecified (principal); Z95.1 Presence of aortocoronary bypass graft; Z95.5 Presence of coronary angioplasty implant and graft; E11.9 Type 2 diabetes mellitus without complications; I10 Essential (primary) hypertension; I25.10 Atherosclerotic heart disease of native coronary artery without angina pectoris; Z98.1 Arthrodesis status; Z79.899 Other long term (current) drug therapy
CPT/HCPCS: 36415; 80053; 93005; 99285; 71046; 83735; 83880; 84484; 85025; 93010; 99284